=== PATIENT | female | born 1995 | race African-American/Black ===

== ENCOUNTER 2017-06-12 14:51 | Emergency (ER) | payer MEDICAID ==
[~2017-06-12] VITALS: Ht 165.1 cm; Wt 87.0 kg
[2017-06-12 14:52] VITALS: BP 120/73; PULSE 86; RESP 18; TEMP 98.9; O2SAT 100
[2017-06-12] MEDS ORDERED: ZOFR4TAB PO (17:54)
--- NOTE | 2017-06-12 17:56 | PD ---
HPI Chief Complaint: Cold / Flu Symptoms Time Seen by Provider: 17:53 Travel History International Travel<30 days: No Contact w/Intl Traveler<30days: No Traveled to known affect area: No History of Present Illness HPI Examined in the presence of female nurse. 21-year-old female with no significant past medical history presents for evaluation of nausea and vomiting which started yesterday evening. She reports 4 episodes of nonbloody emesis, decreased appetite. She endorses occasional myalgias. Denies objective fevers , abdominal pain, cough or congestion, rash, dysuria, flank pain, vaginal bleeding or discharge. Denies any dietary changes. Denies any sick contacts. Denies any diarrhea. Her last menstrual period was 2 weeks ago. No other complaints. [facility] Past Medical History Medical History: Denies Significant Hx Tetanus Vaccination: Unknown ?: Not LMP: 05/29/2017 Past Surgical History Gynecologic Surgery: Yes (ovary) Social History Alcohol Use: No Tobacco Use: No Substance Use: No Allergies-Medications (Allergen,Severity, Reaction): Coded Allergies: No Known Allergies (Unverified , 06/12/17) Reported Meds & Prescriptions Reported Meds & Active Scripts Active Zofran (Ondansetron HCl) 4 Mg Tab 4 Mg PO Q6HR PRN Review of Systems Except as stated in HPI: all other systems reviewed are Neg Physical Exam Narrative GENERAL: Well-nourished female in no acute distress SKIN: Warm and dry. HEAD: Atraumatic. Normocephalic. EYES: Pupils equal and round. No scleral icterus. No injection or drainage. ENT: No nasal bleeding or discharge. Mucous membranes pink and moist. NECK: Trachea midline. No JVD. CARDIOVASCULAR: Regular rate and rhythm. No murmur appreciated. RESPIRATORY: No accessory muscle use. Clear to auscultation. Breath sounds equal bilaterally. GASTROINTESTINAL: Abdomen soft, non-tender, nondistended. Hepatic and splenic margins not palpable. MUSCULOSKELETAL: No obvious deformities. No clubbing. No cyanosis. No edema. NEUROLOGICAL: Awake and alert. No obvious cranial nerve deficits. Motor grossly within normal limits. Normal speech. PSYCHIATRIC: Appropriate mood and affect; insight and judgment normal. Data Data Last Documented VS Vital Signs Date Time Temp Pulse Resp B/P (MAP) Pulse Ox O2 Delivery O2 Flow Rate FiO2 06/12/17 17:48 18 Room Air 06/12/17 14:52 98.9 86 120/73 (89) 100 Orders Orders Influenzae A/B Antigen (06/12/17 15:17) Ondansetron Odt (Zofran Odt) (06/12/17 18:00) Ed Urine Pregnancytest Poc (06/12/17 17:53) Oral Rehydration (06/12/17 17:53) Ed Discharge Order (06/12/17 18:57) MDM Medical Decision Making Medical Screen Exam Complete: Yes Emergency Medical Condition: Yes Medical Record Reviewed: Yes Differential Diagnosis Gastroenteritis, food poisoning, dehydration, Narrative Course Physical examination is reassuring. She appears well. Her abdomen is soft and nontender. Suspect viral gastroenteritis. The patient will be given Zofran oral rehydration. She tolerated oral hydration with no difficulty. She is stable for discharge with a short course of Zofran. Diagnosis Primary Impression: Nausea and vomiting Qualified Codes: R11.2 - Nausea with vomiting, unspecified Additional Instructions: Zofran for nausea. Advance diet as tolerated. Return for any emergent medical conditions. Med/Other Pt SpecificInfo: Prescription(s) given Scripts Ondansetron (Zofran) 4 Mg Tab 4 MG PO Q6HR Y for NAUSEA OR VOMITING, #15 TAB 0 Refills Prov: Cabrera Arenas MD 06/12/17 Disposition: 01 DISCHARGE HOME Condition: Stable Jose Perla Jun 12, 2017 17:56
[2017-06-12] MEDS ORDERED: ONDANSETRON ODT 4 MG TAB PO ONE (18:00)
== END 2017-06-12 19:30 | disposition home or self-care (01) ==
LOC: NEPD 14:51
DX: R11.2 Nausea with vomiting, unspecified (principal)
CPT/HCPCS: 84703; 87804; 99283